=== PATIENT | male | born 1960 ===

== ENCOUNTER 2016-07-31 16:15 | Emergency (ER) | payer MEDICAID ==
[2016-07-31 16:29] VITALS: BP 148/87; PULSE 96; RESP 18; TEMP 98.4; O2SAT 99
--- NOTE | 2016-07-31 16:50 | ED PDOC ---
HPI: Abdomen Time Seen by Provider: 07/31/16 16:38 Chief Complaint (Nursing): Abdominal Pain History Per: Patient (Left inguinal pain intermittent x 1 month, worse over past few days. Pain radiates to groin and left leg. Also numbness left testicle. No vomiting. Nl BM.) Onset/Duration Of Symptoms: Days (2) Current Symptoms Are (Timing): Intermittent Episodes Severity: Moderate Pain Scale Rating Of: 4 Location Of Pain/Discomfort: LLQ Quality Of Discomfort: Aching Associated Symptoms: denies: Nausea, Vomiting, Urinary Symptoms Exacerbating Factors: Walking Past Medical History Vital Signs: Last Vital Signs Temp 98.4 F 07/31/16 16:25 Pulse 96 H 07/31/16 16:25 Resp 18 07/31/16 16:25 BP 148/87 07/31/16 16:25 Pulse Ox 99 07/31/16 20:14 - Medical History PMH: Arthritis, Asthma, CVA - Surgical History Other surgeries: Left inguinal hernia repair - Family History Family History: States: Unknown Family Hx - Home Medications Home Medications: Ambulatory Orders Medication Instructions Recorded Cyclobenzaprine HCl [Flexeril] 10 mg PO TID PRN #15 tab 04/11/15 Oxycodone HCl/Acetaminophen 1 tab PO Q6 PRN #12 tab 04/11/15 [Percocet 325 mg-5 mg] - Allergies Allergies/Adverse Reactions: Allergies Allergy/AdvReac Type Severity Reaction Status Date / Time penicillin G Allergy Mild RASH Verified 04/11/15 16:12 Review of Systems ROS Statement: Except As Marked, All Systems Reviewed And Found Negative Gastrointestinal: Positive for: Abdominal Pain Physical Exam - Reviewed Nursing Documentation Reviewed: Yes Vital Signs Reviewed: Yes - Physical Exam Appears: Positive for: Non-toxic, No Acute Distress Head Exam: Positive for: ATRAUMATIC, NORMAL INSPECTION, NORMOCEPHALIC Skin: Positive for: Normal Color, Warm, DRY Eye Exam: Positive for: EOMI, Normal appearance, PERRL ENT: Positive for: Normal ENT Inspection Neck: Positive for: Normal, Painless ROM Cardiovascular/Chest: Positive for: Regular Rate, Rhythm Respiratory: Positive for: CNT, Normal Breath Sounds Gastrointestinal/Abdominal: Positive for: Bowel Sounds, Soft, Tenderness (Left inguinal area). Negative for: Hernia Male Genital Exam: Negative for: hernia mass Back: Positive for: Normal Inspection Extremity: Positive for: Normal ROM Neurologic/Psych: Positive for: Alert, Oriented - Laboratory Results Result Diagrams: 07/31/16 17:13 07/31/16 17:13 - ECG O2 Sat by Pulse Oximetry: 99 Disposition - Clinical Impression Clinical Impression: Abdominal pain - Patient ED Disposition Is Patient to be Admitted: Transfer of Care - Disposition Referrals: Rivera Jacques MD [Family Provider] - Disposition: Transfer of Care Disposition Time: 19:00 Condition: GOOD Additional Instructions: Your CT did not show any acute findings. Return for worsening. Follow up with your PCP in 2-3 days. Instructions: Abdominal Pain (ED) Patient Signed Over To: Faustina Pena
[2016-07-31 17:25] LABS: BASO # 0.1 K/uL (0.0-0.2); EOS # 0.1 K/uL (0.0-0.7); EOS % 1.8 % (0.0-4.0); HEMATOCRIT 41.7 % (35.0-51.0); LYMPH # 1.1 K/uL (1.0-4.3); LYMPH % 15.9 % (20.0-40.0); MEAN CORPUSCULAR HEMOGLOBIN 31.4 pg (27.0-31.0); MEAN CORPUSCULAR HGB CONC 34.6 g/dL (33.0-37.0); MEAN PLATELET VOLUME 7.9 fl (7.2-11.7); MONO # 0.6 K/uL (0.0-0.8); MONO % 8.6 % (0.0-10.0); NEUT # 5.2 K/uL (1.8-7.0); NEUT % 72.7 % (50.0-75.0); NRBC % 0.1 % (0.0-0.0); RED CELL DISTRIBUTION WIDTH 13.4 % (11.5-14.5); WHITE BLOOD COUNT 7.1 K/uL (4.8-10.8)
[2016-07-31] MEDS ORDERED: Iohexol 300 100 ML IJ ONE (17:46)
[2016-07-31] MEDS ORDERED: Sodium Chloride 0.9% 50 ML IV ONE (17:47)
[2016-07-31 18:06] LABS: ALB/GLOB RATIO 1.2 (1.0-2.1); ALKALINE PHOSPHATASE 91 U/L (38-126); ALT/SGPT 37 U/L (21-72); AST/SGOT 32 U/L (17-59); BLOOD UREA NITROGEN 18 mg/dl (9-20); CALCIUM 9.1 mg/dL (8.4-10.2); CARBON DIOXIDE 27 mmol/L (22-30); CHLORIDE 104 mmol/L (98-107); GFR AFRICAN-AMERICAN > 60; GLUCOSE,RANDOM 96 mg/dL (75-110); POTASSIUM 4.3 MMOL/L (3.6-5.0); SODIUM 140 mmol/l (132-148); TOTAL PROTEIN 7.3 G/DL (6.3-8.2)
--- NOTE | 2016-07-31 19:44 | CT ---
EXAM: CT Abdomen and Pelvis With Intravenous Contrast CLINICAL HISTORY: 55 years old, male; Pain; Abdominal pain; Generalized; Additional info: Left inguinal hernia R/O obstruction TECHNIQUE: Axial computed tomography images of the abdomen and pelvis with intravenous contrast. This CT exam was performed using one or more of the following dose reduction techniques: automated exposure control, adjustment of the mA and/or kV according to patient size, and/or use of iterative reconstruction technique. Coronal and sagittal reformatted images were created and reviewed. CONTRAST: 95 mL of omnipaque 300 administered intravenously. EXAM DATE/TIME: 07/31/2016 4:47 PM COMPARISON: There are no prior CT abdomen and pelvis studies for comparison. Correlation is made with CT chest, 04/11/59 FINDINGS: Lower thorax: Heart size is normal. There are fibrotic changes in the lung bases greatest in the lower lobes. There is less atelectasis and linear scarring in the middle lobe and lingula. There is minimal interstitial opacities in the right middle lobe. ABDOMEN: Liver: There is fatty infiltration of the liver. Gallbladder and bile ducts: unremarkable Pancreas: unremarkable Spleen: unremarkable Adrenals: unremarkable Kidneys and ureters: unremarkable Stomach and bowel: Stomach is almost empty. Rotation is normal. There is no obstruction. Terminal ileum is unremarkable. Appendix is unremarkable.Colon is incompletely distended which limits evaluation. There is scattered diverticulosis. Appendix: See stomach and bowel PELVIS: Bladder: unremarkable Reproductive: Seminal vesicles have the expected configuration. Prostate is mildly enlarged. ABDOMEN and PELVIS: Intraperitoneal space: There is no free air or free fluid. Bones/joints: There are degenerative changes in the osseus structures. There is L5-S1 disc space narrowing with disc bulging. Soft tissues: There is a 2.6 x 1 cm nodular opacity in the right lower quadrant. There is a similar 2.2 x 1.5 cm opacity in the left groin, image 152 series 3 Vasculature: unremarkable Lymph nodes: Occasional calcifications in the aorta.There is no pathologic adenopathy. IMPRESSION: No acute solid visceral abnormality; no bowel obstruction, no CT findings of appendicitis or diverticulitis; small nodular opacities in both inguinal regions; bilateral lower lobe pulmonary fibrosis, similar findings seen on CT chest 04/11/15 Additional findings as described above.
--- NOTE | 2016-07-31 19:53 | ED PDOC ---
"- Laboratory Results Result Diagrams: 07/31/16 17:13 07/31/16 17:13 - ECG O2 Sat by Pulse Oximetry: 99 - Progress ED Course And Treament: [address] Tillman, Pending CT abdomen. EXAM: CT Abdomen and Pelvis With Intravenous Contrast CLINICAL HISTORY: 55 years old, male; Pain; Abdominal pain; Generalized; Additional info: Left inguinal hernia R/O obstruction TECHNIQUE: Axial computed tomography images of the abdomen and pelvis with intravenous contrast. This CT exam was performed using one or more of the following dose reduction techniques : automated exposure control, adjustment of the mA and/or kV according to patient size, and/ or use of iterative reconstruction technique. Coronal and sagittal reformatted images were created and reviewed. CONTRAST: 95 mL of omnipaque 300 administered intravenously. EXAM DATE/TIME: 07/31/2016 4:47 PM COMPARISON: There are no prior CT abdomen and pelvis studies for comparison. Correlation is made with CT chest, 04/11/59 FINDINGS: Lower thorax: Heart size is normal. There are fibrotic changes in the lung bases greatest in the lower lobes. There is less atelectasis and linear scarring in the middle lobe and lingula. There is minimal interstitial opacities in the right middle lobe. ABDOMEN: Liver: There is fatty infiltration of the liver. Gallbladder and bile ducts: unremarkable Pancreas: unremarkable Spleen: unremarkable Adrenals: unremarkable Kidneys and ureters: unremarkable Stomach and bowel: Stomach is almost empty. Rotation is normal. There is no obstruction. Terminal ileum is unremarkable. Appendix is unremarkable.Colon is incompletely distended which limits evaluation. There is scattered diverticulosis. PABLO MAR | Final Radiology Report CONFIDENTIALITY STATEMENT This report is intended only for use by the referring physician, and only in accordance with law. If you received this in error, call [phone]. Page 2 of 2 Appendix: See stomach and bowel PELVIS: Bladder: unremarkable Reproductive: Seminal vesicles have the expected configuration. Prostate is mildly enlarged. ABDOMEN and PELVIS: Intraperitoneal space: There is no free air or free fluid. Bones/joints: There are degenerative changes in the osseus structures. There is L5-S1 disc space narrowing with disc bulging. Soft tissues: There is a 2.6 x 1 cm nodular opacity in the right lower quadrant. There is a similar 2.2 x 1.5 cm opacity in the left groin, image 152 series 3 Vasculature: unremarkable Lymph nodes: Occasional calcifications in the aorta.There is no pathologic adenopathy. IMPRESSION: No acute solid visceral abnormality; no bowel obstruction, no CT findings of appendicitis or diverticulitis; small nodular opacities in both inguinal regions ; bilateral lower lobe pulmonary fibrosis, similar findings seen on CT chest 04/11/15 Re-evaluation Time: 19:51 Condition: Re-examined, Improved Disposition Discussed With : Rivera Jacques Doctor Will See Patient In The: Hospital Counseled Patient/Family Regarding: Studies Performed, Diagnosis - Clinical Impression Clinical Impression: Abdominal pain - POA Present On Arrival: None - Disposition Referrals: Rivera Jacques MD [Family Provider] - Disposition: Routine/Home Disposition Time: 19:52 Condition: GOOD Additional Instructions: Your CT did not show any acute findings. Return for worsening. Follow up with your PCP in 2-3 days. Instructions: Abdominal Pain (ED)"
== END 2016-07-31 20:22 | disposition home or self-care (01) ==
LOC: H.ER 16:15
DX: K40.90 Unilateral inguinal hernia, without obstruction or gangrene, not specified as recurrent (principal); J84.10 Pulmonary fibrosis, unspecified; R10.9 Unspecified abdominal pain; J45.909 Unspecified asthma, uncomplicated; Z86.73 Personal history of transient ischemic attack (TIA), and cerebral infarction without residual deficits; Z88.0 Allergy status to penicillin

== ENCOUNTER 2016-12-28 15:28 | Observation (INO) | payer MEDICARE, MEDICAID ==
[~2016-12-28 15:28] MED LIST: Pneumococcal 23-Valent Vaccine IM ONE
--- NOTE | 2016-12-28 16:59 | ED PDOC ---
HPI: Chest Pain Time Seen by Provider: 12/28/16 16:20 Chief Complaint (Nursing): Chest Pain Chief Complaint (Provider): Chest Pain History Per: Patient History/Exam Limitations: no limitations Onset/Duration Of Symptoms: Intermittent Episodes Current Symptoms Are (Timing): Intermittent Episodes Additional Complaint(s): Bassam is a 56 y/o male who presents to the ED for evaluation of left-sided chest pain with associated palpitations, occurring intermittently for the past few weeks. Patient states he lost his insurance card for some time, and upon reinstating the card, made an appointment to see a doctor today (Dr. Jacques), who referred him to the ED. Patient given 5 x 81 mg Aspirin in his office. Denies shortness of breath, nausea, vomiting, and diarrhea. Patient admits he has a chronic cough and is a smoker (2 packs per week). Of note, patient has a history of high cholesterol, neuropathy, insomnia, sleep apnea and migraines. PMD: [place] Past Medical History Reviewed: Historical Data, Nursing Documentation, Vital Signs Vital Signs: Last Vital Signs Temp 98.6 F 12/29/16 19:37 Pulse 58 L 12/29/16 19:37 Resp 20 12/29/16 19:37 BP 120/71 12/29/16 19:37 Pulse Ox 98 12/29/16 19:37 - Medical History PMH: Arthritis, Asthma, CVA, Hypercholesterolemia, Migraine, Sleep Apnea - Surgical History Other surgeries: Hernia repair - Family History Family History: States: Unknown Family Hx - Social History Current smoker - smoking cessation education provided: Yes Alcohol: Social Drugs: Denies - Home Medications Home Medications: Ambulatory Orders Medication Instructions Recorded Ergocalciferol (Vitamin D2) 50,000 unit PO QWK 12/28/16 [Ergocalciferol] [id number] Ethyl Esters 1 GM 1 gm PO QID 12/28/16 [Lovaza] Zolpidem [Ambien] 5 mg PO HS 12/28/16 Aspirin 81 mg PO DAILY #30 tab.chew 12/29/16 Aspirin [Aspirin Chewable] 81 mg PO DAILY chew 12/29/16 Isosorbide Mononitrate [Imdur] 60 mg PO DAILY #30 tab 12/29/16 Metoprolol Tartrate 25 mg PO BID #60 tablet 12/29/16 - Allergies Allergies/Adverse Reactions: Allergies Allergy/AdvReac Type Severity Reaction Status Date / Time penicillin G Allergy Mild RASH Verified 04/11/15 16:12 Review of Systems ROS Statement: Except As Marked, All Systems Reviewed And Found Negative Cardiovascular: Positive for: Chest Pain, Palpitations Respiratory: Positive for: Cough. Negative for: Shortness of Breath Gastrointestinal: Negative for: Nausea, Vomiting, Diarrhea Physical Exam - Reviewed Nursing Documentation Reviewed: Yes Vital Signs Reviewed: Yes - Physical Exam Appears: Positive for: Non-toxic, No Acute Distress Head Exam: Positive for: ATRAUMATIC, NORMOCEPHALIC Skin: Positive for: Normal Color, Warm, Dry Eye Exam: Positive for: EOMI, Normal appearance, PERRL Neck: Positive for: Normal, Painless ROM, Supple Cardiovascular/Chest: Positive for: Regular Rate, Rhythm. Negative for: Murmur Respiratory: Positive for: Normal Breath Sounds. Negative for: Accessory Muscle Use, Respiratory Distress Pulses-Radial (L): 2+ Pulses-Radial (R): 2+ Gastrointestinal/Abdominal: Positive for: Normal Exam, Soft. Negative for: Tenderness Extremity: Positive for: Normal ROM. Negative for: Pedal Edema, Deformity Neurologic/Psych: Positive for: Alert, Oriented. Negative for: Motor/Sensory Deficits - Laboratory Results Result Diagrams: 12/28/16 17:20 12/28/16 15:35 - ECG ECG: Positive for: Interpreted By Me, Viewed By Me ECG Rhythm: Positive for: Sinus Rhythm. Negative for: ST/T Changes Rate: 65 O2 Sat by Pulse Oximetry: 99 (RA) Pulse Ox Interpretation: Normal Medical Decision Making Medical Decision Making: Time: 16:48 Initial Plan: --EKG --CMP --CBC --Urine culture --Urinalysis --Troponin I --Chest x-ray 2 views --Aspirin 325 mg PO --Pending reevaluation Time: 17:00 --Patient is signed out by me to Dr. Fabricio Tillman, pending cardiac work up and final disposition Scribe Attestation: Documented by Su Bennett, acting as a scribe for Ludwig Quinteros MD Provider Scribe Attestation: All medical record entries made by the Scribe were at my direction and personally dictated by me. I have reviewed the chart and agree that the record accurately reflects my personal performance of the history, physical exam, medical decision making, and the department course for this patient. I have also personally directed, reviewed, and agree with the discharge instructions and disposition. Disposition - Clinical Impression Clinical Impression: Chest pain - Patient ED Disposition Is Patient to be Admitted: Transfer of Care - Disposition Disposition: Transfer of Care Disposition Time: 15:00 Condition: STABLE Patient Signed Over To: Farbicio Tillman
[2016-12-28 17:38] LABS: BASO # 0.1 K/uL (0.0-0.2); BASO % 1.2 % (0.0-2.0); EOS # 0.3 K/uL (0.0-0.7); EOS % 3.7 % (0.0-4.0); HEMATOCRIT 44.7 % (35.0-51.0); LYMPH # 1.6 K/uL (1.0-4.3); LYMPH % 23.1 % (20.0-40.0); MEAN CELL VOLUME 90.9 fl (80.0-94.0); MEAN CORPUSCULAR HEMOGLOBIN 30.3 pg (27.0-31.0); MEAN CORPUSCULAR HGB CONC 33.4 g/dL (33.0-37.0); MEAN PLATELET VOLUME 8.1 fl (7.2-11.7); MONO # 0.7 K/uL (0.0-0.8); MONO % 9.4 % (0.0-10.0); NEUT # 4.4 K/uL (1.8-7.0); NEUT % 62.6 % (50.0-75.0); RED CELL DISTRIBUTION WIDTH 13.7 % (11.5-14.5)
[2016-12-28 17:45] LABS: ALB/GLOB RATIO 1.4 (1.0-2.1); ALKALINE PHOSPHATASE 87 U/L (38-126); ALT/SGPT 38 U/L (21-72); AST/SGOT 37 U/L (17-59); BILIRUBIN,TOTAL 0.7 mg/dl (0.2-1.3); BLOOD UREA NITROGEN 20 mg/dl (9-20); CALCIUM 9.3 mg/dL (8.4-10.2); CARBON DIOXIDE 25 mmol/L (22-30); CHLORIDE 106 mmol/L (98-107); GFR AFRICAN-AMERICAN > 60; GLUCOSE,RANDOM 82 mg/dL (75-110); POTASSIUM 4.2 MMOL/L (3.6-5.0); SODIUM 145 mmol/l (132-148); TOTAL PROTEIN 7.7 G/DL (6.3-8.2)
--- NOTE | 2016-12-28 18:32 | ED PDOC ---
- Laboratory Results Result Diagrams: 12/28/16 17:20 12/28/16 15:35 - ECG O2 Sat by Pulse Oximetry: 99 (RA) Pulse Ox Interpretation: Normal Medical Decision Making Medical Decision Making: Receiving sign out: Patient signed out to me by Dr. Quinteros at 1700 pending cardiac workup and disposition. Scribe Attestation: Documented by Marie Reveles acting as a scribe for Fabricio Tillman MD. Provider Attestation: All medical record entries made by the Scribe were at my direction and personally dictated by me. I have reviewed the chart and agree that the record accurately reflects my personal performance of the history, physical exam, medical decision making, and the department course for this patient. I have also personally directed, reviewed, and agree with the discharge instructions and disposition. Disposition - Clinical Impression Clinical Impression: Chest pain - POA Present On Arrival: None - Disposition Disposition: Hospitalized as Observation Patient Disposition Time: 18:33 Condition: FAIR Forms: [employer] ([place]aguan)
[2016-12-28 23:23] LABS: RBC URINE 4 /hpf (0-3); URINE BILIRUBIN NEGATIVE (NEGATIVE); URINE BLOOD SMALL (NEGATIVE); URINE COLOR STRAW (YELLOW); URINE GLUCOSE (UA) NEG (Normal); URINE KETONE NEGATIVE (NEGATIVE); URINE LEUKOCYTE ESTERASE NEG Leu/uL (Negative); URINE PROTEIN NEGATIVE (NEGATIVE); URINE UROBILINOGEN 0.2-1.0 mg/dL (0.2-1.0); WBC URINE 1 /hpf (0-5)
[2016-12-29] MEDS ORDERED: Influenza Vaccine 18yr & older 0.5 ML/45 MCG SYR IM ONE (06:00)
[2016-12-29] MEDS ORDERED: Pneumococcal 23-Valent Vaccine IM ONE (06:00)
--- NOTE | 2016-12-29 08:24 | RAD ---
HISTORY: Chest pain. COMPARISON: No prior. TECHNIQUE: Chest PA and lateral FINDINGS: LUNGS: No active pulmonary disease. PLEURA: No significant pleural effusion identified. No pneumothorax apparent. CARDIOVASCULAR: No radiographic findings to suggest acute or significant cardiovascular disease. OSSEOUS STRUCTURES: No significant abnormalities. VISUALIZED UPPER ABDOMEN: Normal. OTHER FINDINGS: None. IMPRESSION: No active disease. Please note: No preliminary report/ innterpretation of this examination provided by emergency department personnel.
[2016-12-29] MEDS ORDERED: NAPROXEN 375 MG PO SCH (09:00)
[2016-12-29] MEDS ORDERED: Enoxaparin 40 mg Syringe SC SCH (09:00)
[2016-12-29] MEDS ORDERED: Aminophylline 25 mg/ml Inj ONE (09:44)
--- NOTE | 2016-12-29 14:46 | CP.PCM.HP ---
History of Present Illness - History of Present Illness History of Present Illness: Patient is 56 y/o male presented in ER with hx of precordial CP, constrictive in nature on exertion. C/O palpitation with episodes of tachycardia. Patient is an heavy cigarettes smoker. Hx of hyperlipedemia. Present on Admission - Present on Admission Any Indicators Present on Admission: No Review of Systems - Constitutional Constitutional: As Per HPI - EENT Eyes: As Per HPI - Cardiovascular Cardiovascular: Chest Pain, Chest Pain with Activity - Respiratory Respiratory: As Per HPI - Gastrointestinal Gastrointestinal: As Per HPI - Musculoskeletal Musculoskeletal: As Per HPI - Integumentary Integumentary: As Per HPI - Neurological Neurological: As Per HPI - Psychiatric Psychiatric: As Per HPI Past Patient History - Past Social History Smoking Status: Heavy Smoker > 10 Cigarettes Daily - CARDIAC Hx Cardiac Disorders: Yes Hx Hypercholesterolemia: Yes - PULMONARY Hx Asthma: Yes - NEUROLOGICAL HX Cerebrovascular Accident: Yes Hx Migraine: Yes Other/Comment: Neuropathy - HEENT Hx HEENT Problems: No - RENAL Hx Chronic Kidney Disease: No - ENDOCRINE/METABOLIC Hx Endocrine Disorders: No - HEMATOLOGICAL/ONCOLOGICAL Hx Blood Disorders: No Hx AIDS: No Hx Human Immunodeficiency Virus (HIV): No - INTEGUMENTARY Hx Dermatological Problems: No - MUSCULOSKELETAL/RHEUMATOLOGICAL Hx Musculoskeletal Disorders: Yes Hx Arthritis: Yes Hx Falls: Yes - GASTROINTESTINAL Hx Gastrointestinal Disorders: No - GENITOURINARY/GYNECOLOGICAL Hx Genitourinary Disorders: No - PSYCHIATRIC Hx Psychophysiologic Disorder: No Hx Substance Use: No (occasional cannabis) - SURGICAL HISTORY Hx Surgeries: Yes Hx Herniorrhaphy: Yes (double hernia repair) - ANESTHESIA Hx Anesthesia: Yes Hx Anesthesia Reactions: No Meds Allergies/Adverse Reactions: Allergies Allergy/AdvReac Type Severity Reaction Status Date / Time penicillin G Allergy Mild RASH Verified 04/11/15 16:12 Physical Exam - Constitutional Appears: Non-toxic - Head Exam Head Exam: ATRAUMATIC, NORMAL INSPECTION, NORMOCEPHALIC - Eye Exam Eye Exam: Normal appearance Pupil Exam: NORMAL ACCOMODATION - ENT Exam ENT Exam: Mucous Membranes Moist - Neck Exam Neck exam: Positive for: Full Rom - Respiratory Exam Respiratory Exam: Clear to Auscultation Bilateral - Cardiovascular Exam Cardiovascular Exam: REGULAR RHYTHM, +S1, +S2 - GI/Abdominal Exam GI & Abdominal Exam: Normal Bowel Sounds - Extremities Exam Extremities exam: Positive for: normal inspection - Neurological Exam Neurological exam: Alert, CN II-XII Intact, Normal Gait, Oriented x3, Reflexes Normal - Psychiatric Exam Psychiatric exam: Normal Affect - Skin Skin Exam: Normal Color Results - Vital Signs Recent Vital Signs: Last Vital Signs Temp 98.5 F 12/29/16 12:08 Pulse 67 12/29/16 12:08 Resp 18 12/29/16 12:08 BP 144/83 12/29/16 12:08 Pulse Ox 100 12/29/16 12:08 - Labs Result Diagrams: 12/28/16 17:20 12/28/16 15:35 Labs: Laboratory Results - last 24 hr 12/28/16 12/28/16 12/28/16 15:35 17:20 23:07 WBC 7.0 RBC 4.93 Hgb 14.9 Hct 44.7 MCV 90.9 MCH 30.3 MCHC 33.4 RDW 13.7 Plt Count 325 MPV 8.1 Neut % (Auto) 62.6 Lymph % (Auto) 23.1 [place] % (Auto) 9.4 Eos % (Auto) 3.7 Baso % (Auto) 1.2 Neut # 4.4 Lymph # 1.6 [place] # 0.7 Eos # 0.3 Baso # 0.1 Sodium 145 Potassium 4.2 Chloride 106 Carbon Dioxide 25 Anion Gap 18 BUN 20 Creatinine 1.1 Est GFR ( Amer) > 60 Est GFR (Non-Af Amer) > 60 Random Glucose 82 Calcium 9.3 Total Bilirubin 0.7 AST 37 ALT 38 Alkaline Phosphatase 87 Troponin I < 0.0120 Total Protein 7.7 Albumin 4.4 Globulin 3.2 Albumin/Globulin Ratio 1.4 Urine Color Straw Urine Clarity Clear Urine pH 6.0 Ur Specific [place] 1.018 Urine Protein Negative Urine Glucose (UA) Neg Urine Ketones Negative Urine Blood Small Urine Nitrate Negative Urine Bilirubin Negative Urine Urobilinogen 0.2-1.0 Ur Leukocyte Esterase Neg Urine RBC (Auto) 4 H Urine Microscopic WBC 1 12/28/16 12/29/16 23:12 07:30 WBC RBC Hgb Hct MCV MCH MCHC RDW Plt Count MPV Neut % (Auto) Lymph % (Auto) [place] % (Auto) Eos % (Auto) Baso % (Auto) Neut # Lymph # [place] # Eos # Baso # Sodium Potassium Chloride Carbon Dioxide Anion Gap BUN Creatinine Est GFR ( Amer) Est GFR (Non-Af Amer) Random Glucose Calcium Total Bilirubin AST ALT Alkaline Phosphatase Troponin I < 0.0120 < 0.0120 Total Protein Albumin Globulin Albumin/Globulin Ratio Urine Color Urine Clarity Urine pH Ur Specific [place] Urine Protein Urine Glucose (UA) Urine Ketones Urine Blood Urine Nitrate Urine Bilirubin Urine Urobilinogen Ur Leukocyte Esterase Urine RBC (Auto) Urine Microscopic WBC Assessment & Plan (1) Costochondral chest pain Status: Acute (2) Smoker Status: Chronic (3) Combined hyperlipidemia Status: Chronic (4) Chest pain Status: Acute - Assessment and Plan (Free Text) Plan: Will follow w/u
[2016-12-29 15:33] VITALS: RESP 20; TEMP 98.6
--- NOTE | 2016-12-29 16:30 | CARD ---
APPROVED REPORT EXAM: Two-dimensional and M-mode echocardiogram with Doppler and color Doppler. Other Information Quality : GoodRhythm : NSR INDICATION Chest Pain 2D DIMENSIONS IVSd1.06 (0.7-1.1cm)LVDd4.70 (3.9-5.9cm) LVOT Diameter2.31 (1.8-2.4cm)PWd1.03 (0.7-1.1cm) IVSs1.07 (0.8-1.2cm)LVDs3.29 (2.5-4.0cm) FS (%) 29.9 %PWs1.25 (0.8-1.2cm) LVEF (%)55.0 (>50%) M-Mode DIMENSIONS Left Atrium (MM)3.97 (2.5-4.0cm)IVSd1.12 (0.7-1.1cm) Aortic Root2.74 (2.2-3.7cm)LVDd5.38 (4.0-5.6cm) Aortic Cusp Exc.2.21 (1.5-2.0cm)PWd0.97 (0.7-1.1cm) IVSs1.47 cmFS (%) 35 % LVDs3.50 (2.0-3.8cm)PWs1.56 cm Mitral Valve MV E Xcrobwqv44.4cm/sMV DECEL [id number] A Nsvdmlxl82.6cm/s MV [id number]/A ratio1.3MVA (PHT)3.98cm2 TDI Lateral E' Peak V11.49cm/sMedial E' Peak V11.24cm/sE/Lateral E'5.3 E/Medial E'5.5 Pulmonary Valve PV Peak Xpsjgpbk021.5cm/s LEFT VENTRICLE The left ventricle is normal size. There is normal left ventricular wall thickness. The left ventricular function is normal. The left ventricular ejection fraction is within the normal range. There is normal LV segmental wall motion. Transmitral Doppler flow pattern is Grade I-abnormal relaxation pattern. RIGHT VENTRICLE The right ventricle is normal size. There is normal right ventricular wall thickness. The right ventricular systolic function is normal. ATRIA The left atrium size is normal. The right atrium size is normal. A PFO is noted AORTIC VALVE The aortic valve is not well visualized. No aortic regurgitation is present. There is no aortic valvular stenosis. MITRAL VALVE The mitral valve is normal in structure and function. There is no mitral valve stenosis. There is no mitral valve regurgitation noted. TRICUSPID VALVE The tricuspid valve is normal in structure and function. There is no tricuspid valve regurgitation noted. PULMONIC VALVE The pulmonary valve is normal in structure and function. There is no pulmonic valvular regurgitation. GREAT VESSELS The aortic root is normal in size. The IVC is normal in size and collapses >50% with inspiration. PERICARDIAL EFFUSION The pericardium appears normal. <Conclusion> The left ventricle is normal size. There is normal left ventricular wall thickness. The left ventricular function is normal. The left ventricular ejection fraction is within the normal range. There is normal LV segmental wall motion. Transmitral Doppler flow pattern is Grade I-abnormal relaxation pattern. A PFO is noted
[2016-12-29 19:38] VITALS: BP 120/71
[2016-12-29 22:16] VITALS: PULSE 65; O2SAT 99
--- NOTE | 2016-12-30 01:23 | CARD ---
APPROVED REPORT EKG Measurement Heart [id number] <Conclusion> Sinus bradycardia Otherwise normal ECG
== END 2016-12-29 20:10 | disposition home or self-care (01) ==
LOC: H.ER 15:28 → H.ERHOLD 18:35 → H.TEL 21:31
PROVIDERS: ADMIT Internal Medicine; ATTEND Internal Medicine
DX: R07.89 Other chest pain (principal); E78.2 Mixed hyperlipidemia; F17.200 Nicotine dependence, unspecified, uncomplicated; G47.30 Sleep apnea, unspecified; J45.909 Unspecified asthma, uncomplicated; Z79.82 Long term (current) use of aspirin; Z86.73 Personal history of transient ischemic attack (TIA), and cerebral infarction without residual deficits; F12.90 Cannabis use, unspecified, uncomplicated; G43.909 Migraine, unspecified, not intractable, without status migrainosus; G47.00 Insomnia, unspecified; G62.9 Polyneuropathy, unspecified; M19.90 Unspecified osteoarthritis, unspecified site; Z23 Encounter for immunization
CPT/HCPCS: 36415; 71020; 78452; 80053; 81003; 84484; 85025; 87086; 90732; 93005; 93017; 93306; 99283; A9502; G0008; G0009; G0378; J1650; J2785; Q2035

== ENCOUNTER 2017-11-01 08:57 | Emergency (ER) | payer OTHER ==
[2017-11-01 09:03] VITALS: BMI 25.4
--- NOTE | 2017-11-01 10:43 | ED PDOC ---
Lower Extremity Pain/Injury Time Seen by Provider: 11/01/17 09:18 Chief Complaint (Nursing): Lower Extremity Problem/Injury Chief Complaint (Provider): Lower Extremity Problem/Injury History Per: Patient History/Exam Limitations: no limitations Onset/Duration Of Symptoms: Days (x 1) Current Symptoms Are (Timing): Still Present Additional Complaint(s): 57 year old male presents to the ED via EMS with a right foot injury that occurred earlier today. 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 He finished his shift and reported to the ED. Patient is able to ambulate. Offers no other complaints. PMD: Dr. Jacques - Ankle/Foot Description Of Injury: Twisted Past Medical History Reviewed: Historical Data, Nursing Documentation, Vital Signs Vital Signs: Last Vital Signs Temp 98 F 11/01/17 09:01 Pulse 80 11/01/17 09:01 Resp BP 140/73 11/01/17 09:01 Pulse Ox 97 11/01/17 09:01 - Medical History PMH: Arthritis, Asthma, CVA, Hypercholesterolemia, Migraine, Sleep Apnea Denies: HIV, Chronic Kidney Disease - Surgical History Other surgeries: left 4th toe amputation - Family History Family History: States: Unknown Family Hx - Home Medications Home Medications: Ambulatory Orders Medication Instructions Recorded Ergocalciferol (Vitamin D2) 50,000 unit PO QWK 12/28/16 [Ergocalciferol] Krlih-0-Yxaf Ethyl Esters 1 GM 1 gm PO QID 12/28/16 [Lovaza] Zolpidem [Ambien] 5 mg PO HS 12/28/16 Aspirin 81 mg PO DAILY #30 tab.chew 12/29/16 Aspirin [Aspirin Chewable] 81 mg PO DAILY chew 12/29/16 Isosorbide Mononitrate [Imdur] 60 mg PO DAILY #30 tab 12/29/16 Metoprolol Tartrate 25 mg PO BID #60 tablet 12/29/16 Acetaminophen [Tylenol 325mg tab] 2 tab PO Q4H PRN #20 tab 11/01/17 - Allergies Allergies/Adverse Reactions: Allergies Allergy/AdvReac Type Severity Reaction Status Date / Time penicillin G Allergy Mild RASH Verified 11/01/17 09:01 Review of Systems ROS Statement: Except As Marked, All Systems Reviewed And Found Negative Musculoskeletal: Positive for: Foot Pain (right foot and ankle pain) Physical Exam - Reviewed Nursing Documentation Reviewed: Yes Vital Signs Reviewed: Yes - Physical Exam Appears: Positive for: Non-toxic, No Acute Distress Head Exam: Positive for: ATRAUMATIC, NORMAL INSPECTION, NORMOCEPHALIC Skin: Positive for: Normal Color, Warm, Dry Eye Exam: Positive for: EOMI, Normal appearance, PERRL Neck: Positive for: Normal, Painless ROM, Supple Cardiovascular/Chest: Positive for: Regular Rate, Rhythm. Negative for: Murmur Respiratory: Positive for: Normal Breath Sounds. Negative for: Wheezing, Respiratory Distress Pulses-Dorsalis Pedis (R): 2+ Gastrointestinal/Abdominal: Positive for: Normal Exam, Soft. Negative for: Tenderness Extremity: Positive for: Other (ecchymosis to the left anterior proximal foot with tenderness bilaterally; s/p 4th toe amputation). Negative for: Tenderness (to right malleolar foot), Deformity Neurologic/Psych: Positive for: Alert, Oriented (x 3) - ECG O2 Sat by Pulse Oximetry: 97 (RA) Pulse Ox Interpretation: Normal Medical Decision Making Medical Decision Making: Time: 09:27 Impression: right foot injury Initial Plan: --Tylenol 650 mg PO --Right foot x-ray --Right ankle x-ray 10:15 --Consulted podiatry. Accession No. : [id number] Patient Name / ID : ZAID Ingram / [id number] Exam Date : 11/01/2017 09:26:46 ( Approved ) Study Comment : Sex / Age : M / 57Y Creator : Eliezer Crespo MD Dictator : Eliezer Crespo MD Java Lead Developer : Research Rn Spec : Eliezer Crespo MD Approver2 : Report Date : 11/01/2017 12:56:36 My Comment : Date of service: 11/01/2017 PROCEDURE: Left Ankle Radiographs. HISTORY: Twisting injury COMPARISON: None FINDINGS: BONES: Normal. No fracture. JOINTS: Normal. No osteoarthritis. Ankle mortise maintained. Talar dome intact SOFT TISSUES: Normal. OTHER FINDINGS: None. IMPRESSION: Normal left ankle radiographs. Accession No. : [id number] Patient Name / ID : ZAID Ingram / [id number] Exam Date : 11/01/2017 09:34:26 ( Approved ) Study Comment : Sex / Age : M / 57Y Creator : Eliezer Crespo MD Dictator : Eliezer Crespo MD Java Lead Developer : Research Rn Spec : Eliezer Crespo MD Approver2 : Report Date : 11/01/2017 12:57:13 My Comment : Date of service: 11/01/2017 PROCEDURE: Left Foot Radiographs. HISTORY: Twisting injury COMPARISON: None. FINDINGS: BONES: No acute findings. Resection of 4th digit an incidental finding. JOINTS: Hammertoe deformity 5th digit. SOFT TISSUES: Normal. OTHER FINDINGS: None. IMPRESSION: No acute findings related to/accounting for the clinical presentation. Additional benign and/or incidental findings described above. ---- Scribe Attestation: Documented by Carlotta Oconnell, acting as a scribe for Valencia Barron MD Provider Scribe Attestation: All medical record entries made by the Scribe were at my direction and personally dictated by me. I have reviewed the chart and agree that the record accurately reflects my personal performance of the history, physical exam, medical decision making, and the department course for this patient. I have also personally directed, reviewed, and agree with the discharge instructions and disposition. Disposition - Clinical Impression Clinical Impression: Foot sprain - Patient ED Disposition Is Patient to be Admitted: No - Disposition Referrals: Josef Sloan DPM [Staff Provider] - Podiatry Clinic [Outside] Disposition: Routine/Home Disposition Time: 12:44 Condition: STABLE Additional Instructions: FOLLOW-UP WITH PODIATRY IN ONE WEEK. Prescriptions: Acetaminophen [Tylenol 325mg tab] 2 tab PO Q4H PRN #20 tab PRN Reason: Fever >100.4 F Instructions: Foot Sprain (DC) Forms: [employer] (Armenian)
--- NOTE | 2017-11-01 10:57 | CP.PCM.CON ---
History of Present Illness - History of Present Illness History of Present Illness: Podiatry Consult Note for Dr. Sloan: 57yo male patient, with denies pertinent PMHx, presents to the ED with left ankle pain. 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 He is finished his shift and came into the ED. He is able to ambulate, however is in pain. He rates the pain 7/10 today to the front and sides of his ankle. Denies any numbness or tingling to left lower extremity. Patient denies N/V/F/SOB/CP. PMHx: back spasms PSHx: bilateral hernia repair, left 4th digit amputation Social: daily tobacco use ALL: PCN Review of Systems - Review of Systems Review of Systems: As per HPI. Past Patient History - Past Social History Smoking Status: Heavy Smoker > 10 Cigarettes Daily - CARDIAC Hx Hypercholesterolemia: Yes - PULMONARY Hx Asthma: Yes Hx Sleep Apnea: Yes - NEUROLOGICAL Hx Migraine: Yes - HEENT Hx HEENT Problems: No - RENAL Hx Chronic Kidney Disease: No - ENDOCRINE/METABOLIC Hx Endocrine Disorders: No - HEMATOLOGICAL/ONCOLOGICAL Hx Human Immunodeficiency Virus (HIV): No - INTEGUMENTARY Hx Dermatological Problems: No - MUSCULOSKELETAL/RHEUMATOLOGICAL Hx Arthritis: Yes - GASTROINTESTINAL Hx Gastrointestinal Disorders: No - GENITOURINARY/GYNECOLOGICAL Hx Genitourinary Disorders: No - PSYCHIATRIC Hx Psychophysiologic Disorder: No Hx Substance Use: No (occasional cannabis) - SURGICAL HISTORY Hx Surgeries: Yes Hx Herniorrhaphy: Yes (double hernia repair) - ANESTHESIA Hx Anesthesia: Yes Hx Anesthesia Reactions: No Meds Home Medications: Home Medication List Medication Instructions Recorded Confirmed Type Acetaminophen [Tylenol 325mg tab] 2 tab PO Q4H PRN #20 tab 11/01/17 Rx Allergies/Adverse Reactions: Allergies Allergy/AdvReac Type Severity Reaction Status Date / Time penicillin G Allergy Mild RASH Verified 11/01/17 09:01 Physical Exam - Constitutional Appears: Well, Non-toxic, No Acute Distress - Head Exam Head Exam: ATRAUMATIC, NORMOCEPHALIC - Extremities Exam Additional comments: LLE focused exam: Vascular: DP/PT 2/4, CFT <3 seconds to all 5 digits, TG WNL, edema noted to medial, lateral, and anterior aspect of the left ankle joint Ortho: Pain upon palpation to left deltoid ligaments, lateral ankle ligaments, and anterior aspect of ankle joint. MMT 4/5 due to patient guarding. Tenderness to palpation of lateral aspect of left fibula Neuro: Gross and protective sensation intact Derm: No open lesions, no erythema, no ecchymosis noted, no clinical sings of infection to left ankle - Neurological Exam Neurological exam: Alert, Oriented x3 - Psychiatric Exam Psychiatric exam: Normal Affect Results - Vital Signs Recent Vital Signs: Last Vital Signs Temp 98 F 11/01/17 09:01 Pulse 80 11/01/17 09:01 Resp BP 140/73 11/01/17 09:01 Pulse Ox 97 11/01/17 10:51 Assessment & Plan - Assessment and Plan (Free Text) Assessment: 57yo male patient, with denies pertinent PMHx, presents to the ED with left ankle ligamentous injury Plan: Patient seen and evaluated at bedside Discussed in detail with Dr. Sloan Left foot, ankle, and tib/fib x-ray's ordered and reviewed; No osseous abnormalities Crowe compression applied to left lower extremity with posterior splint Patient advised to remain NWB to LLE until he follows up in office/clinic Instructed to leave splint and dressing C/D/I until he follows up Dispensed crutches to patient and instructed on their proper use F/U in office/clinic in 1 week for evaluation Thank you for the consult - Date & Time Date: 11/01/17 Time: 11:50
--- NOTE | 2017-11-01 12:58 | RAD ---
Date of service: 11/01/2017 PROCEDURE: Left Ankle Radiographs. HISTORY: Twisting injury COMPARISON: None FINDINGS: BONES: Normal. No fracture. JOINTS: Normal. No osteoarthritis. Ankle mortise maintained. Talar dome intact SOFT TISSUES: Normal. OTHER FINDINGS: None. IMPRESSION: Normal left ankle radiographs.
--- NOTE | 2017-11-01 12:58 | RAD ---
Date of service: 11/01/2017 PROCEDURE: Left Foot Radiographs. HISTORY: Twisting injury COMPARISON: None. FINDINGS: BONES: No acute findings. Resection of 4th digit an incidental finding. JOINTS: Hammertoe deformity 5th digit. SOFT TISSUES: Normal. OTHER FINDINGS: None. IMPRESSION: No acute findings related to/accounting for the clinical presentation. Additional benign and/or incidental findings described above.
--- NOTE | 2017-11-01 13:00 | RAD ---
Date of service: 11/01/2017 PROCEDURE: Radiographs of the left tibia and fibula. HISTORY: left high ankle pain COMPARISON: None available. TECHNIQUE: Frontal and lateral views obtained. FINDINGS: BONES: No fracture or destructive lesion. JOINT SPACES: Unremarkable. OTHER FINDINGS: None. IMPRESSION: Unremarkable radiographs of the left tibia and fibula.
[2017-11-01 13:16] VITALS: BP 132/72; PULSE 84; RESP 18; TEMP 98.3
[2017-11-01 13:35] VITALS: O2SAT 97
== END 2017-11-01 13:10 | disposition home or self-care (01) ==
LOC: H.ER 08:57
DX: S93.602A Unspecified sprain of left foot, initial encounter (principal); X50.9XXA Other and unspecified overexertion or strenuous movements or postures, initial encounter; Y99.0 Civilian activity done for income or pay; Z89.422 Acquired absence of other left toe(s)